=== PATIENT | male | born 1945 | race Caucasian/White ===

== ENCOUNTER 2019-06-04 14:49 | Outpatient (CLI) | payer OTHER | END 2019-06-04 14:55 | disposition HB | LOC: LAB 14:49 | DX: N28.89 Other specified disorders of kidney and ureter (principal) ==

== ENCOUNTER 2019-06-12 09:03 | Outpatient (CLI) | payer OTHER | END 2019-06-12 09:09 | disposition home or self-care (01) | LOC: MRI 09:03 | DX: M75.42 Impingement syndrome of left shoulder (principal); M25.512 Pain in left shoulder | CPT/HCPCS: 73219 ==

== ENCOUNTER 2019-10-18 12:36 | Outpatient (CLI) | payer OTHER ==
[2019-10-18] MEDS ORDERED: ZOCOR20 MG (15:18)
[2019-10-18] MEDS ORDERED: GRALISE600 MG (15:18)
[2019-10-18] MEDS ORDERED: FORTAMET500 MG PO (15:18)
[2019-10-18] MEDS ORDERED: TOPROL XL25 M1 PO (15:19)
[2019-10-18] MEDS ORDERED: ZESTRIL10 M1 PO (15:19)
[2019-10-18] MEDS ORDERED: AMLODIPINE PO (15:19)
[2019-10-18] MEDS ORDERED: HUMALOG100 UNIT/2 SUBCUTANEO (15:20)
[2019-10-18] MEDS ORDERED: LANTUS SOL100 UNIT/1 (15:21)
[2019-10-18] MEDS ORDERED: SLOW-MAG64 M1 PO (15:32)
[2019-10-19] MEDS ORDERED: MAGNESIUM OXID250 MG PO (10:32)
[2019-10-22] MEDS ORDERED: CIPRO500 MG PO (10:19)
== END 2019-10-18 12:44 | disposition home or self-care (01) ==
LOC: RAD 12:36 → LAB 12:36
PROVIDERS: ATTEND Orthopaedic Surgery
DX: D64.89 Other specified anemias (principal); E88.89 Other specified metabolic disorders; D68.8 Other specified coagulation defects; N39.0 Urinary tract infection, site not specified; Z22.322 Carrier or suspected carrier of Methicillin resistant Staphylococcus aureus; E13.69 Other specified diabetes mellitus with other specified complication; E83.42 Hypomagnesemia; Z76.89 Persons encountering health services in other specified circumstances; I49.8 Other specified cardiac arrhythmias; I10 Essential (primary) hypertension; B96.89 Other specified bacterial agents as the cause of diseases classified elsewhere

== ENCOUNTER 2022-01-01 11:15 | Emergency (ER) | payer OTHER ==
[~2022-01-01] VITALS: Ht 160 cm; Wt 79.4 kg
[~2022-01-01 11:15] MED LIST: AMLODIPINE PO; CIPRO500 MG PO; FORTAMET500 MG PO; GRALISE600 MG; HUMALOG100 UNIT/2 SUBCUTANEO; LANTUS SOL100 UNIT/1; MAGNESIUM OXID250 MG PO; SLOW-MAG64 M1 PO; TOPROL XL25 M1 PO; ZESTRIL10 M1 PO; ZOCOR20 MG
== END 2022-01-01 14:27 | disposition left against medical advice (07) ==
LOC: ER 11:15
DX: M79.605 Pain in left leg (principal)